=== PATIENT | male | born 1990 | race American Indian/Alaskan Native ===

== ENCOUNTER 2017-11-11 23:12 | Emergency (ER) | payer OTHER ==
[2017-11-11] MEDS ORDERED: Iopamidol 612 MG/ML 100 ML Bottle IVPUSH ONE (23:19)
[2017-11-11] MEDS ORDERED: Sodium Chloride 0.9% 1,000 ML IV ONE (23:21)
[2017-11-11 23:25] VITALS: BP 147/116
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
[2017-11-12 00:05] LABS: ACETAMINOPHEN < 10; ANION GAP 15.7; CHLORIDE,CL 105 mmol/L (101-111); SODIUM,NA 138 mmol/L (135-145)
[2017-11-12] MEDS ORDERED: Ketorolac 30 MG/ML SDV IVPUSH ONE (00:44)
== END 2017-11-12 01:05 | disposition home or self-care (01) ==
LOC: DL.ED 23:12
DX: M54.42 Lumbago with sciatica, left side (principal); F17.210 Nicotine dependence, cigarettes, uncomplicated; F10.129 Alcohol abuse with intoxication, unspecified; Y90.8 Blood alcohol level of 240 mg/100 ml or more
CPT/HCPCS: 36415; 70450; 71260; 72125; 74177; 80053; 80305; 81001; 82140; 82150; 83690; 85025; 99284; G0480; J1885; J7030; Q9967

== ENCOUNTER 2017-12-27 19:35 | Emergency (ER) | payer OTHER ==
[2017-12-27 21:22] VITALS: BP 149/88
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
== END 2017-12-27 22:31 | disposition home or self-care (01) ==
LOC: DL.ED 19:35
DX: S60.221A Contusion of right hand, initial encounter (principal); M54.42 Lumbago with sciatica, left side; F17.210 Nicotine dependence, cigarettes, uncomplicated; X58.XXXA Exposure to other specified factors, initial encounter
CPT/HCPCS: 73130-RT; 99284

== ENCOUNTER 2019-08-24 18:53 | Emergency (ER) | payer MEDICAID, OTHER ==
--- NOTE | 2019-08-24 19:33 | EDM.PDOC ---
ED HPI GENERAL MEDICAL PROBLEM - General Chief Complaint: Lower Extremity Injury/Pain Stated Complaint: PAIN LOWER BACK Time Seen by Provider: 08/24/19 19:32 Source of Information: Reports: Patient, RN History Limitations: Reports: No Limitations - History of Present Illness INITIAL COMMENTS - FREE TEXT/NARRATIVE: Ambulatory with c/o low back pain radiating to right hip. Last ibuprofen at 0900. Has had back issues in past, This feels different as more pain to hip than down leg. No injury. Pain x 5 days. No fever or chills. No incontinence. No numbness or tingling. Pain worse with lifting or when trying to lie on back. 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 [No Known Home Meds] 02/09/14 [History] Past Medical History - Past Health History Medical/Surgical History: Denies Medical/Surgical History HEENT History: Reports: None Musculoskeletal History: Reports: Fracture Other Musculoskeletal History: lower back 2 years ago. Fx. Rt.3rd finger. nerve problem i to lower back in past. - Infectious Disease History Infectious Disease History: Reports: None Social & Family History - Family History Family Medical History: Noncontributory - Tobacco Use Smoking Status *Q: Current Some Day Smoker Years of Tobacco use: 4 Packs/Tins Daily: 0.1 - Caffeine Use Caffeine Use: Reports: Coffee - Recreational Drug Use Recreational Drug Use: Yes Drug Use in Last 12 Months: Yes Recreational Drug Type: Reports: Marijuana/Hashish Recreational Drug Use Frequency: Weekly Review of Systems - Review of Systems Review Of Systems: ROS reveals no pertinent complaints other than HPI. ED EXAM, GENERAL - Physical Exam Exam: See Below Exam Limited By: No Limitations General Appearance: Alert, Mild Distress, Obese Ears: Normal External Exam Nose: Normal Inspection Throat/Mouth: Normal Inspection Head: Atraumatic, Normocephalic Neck: Normal Inspection, Full Range of Motion Respiratory/Chest: No Respiratory Distress, Lungs Clear Cardiovascular: Normal Peripheral Pulses, Regular Rate, Rhythm GI/Abdominal: Soft Back Exam: Full Range of Motion, Paraspinal Tenderness (right lower). No: CVA Tenderness (L), CVA Tenderness (R), Vertebral Tenderness Extremities: Normal Range of Motion, Other (increased pain with leg raise greater than 90 degrees and with inversion of hip/thigh) Neurological: No Motor/Sensory Deficits Skin Exam: Warm, Dry, Intact, Normal Color Course - Vital Signs Last Recorded V/S: Last Vital Signs Temp 98.4 F 08/24/19 21:44 Pulse 78 08/24/19 21:44 Resp 20 08/24/19 21:44 BP 139/88 08/24/19 21:44 Pulse Ox 96 08/24/19 21:44 - Orders/Labs/Meds Meds: Medications Discontinued Medications Generic Name Dose Route Start Last Admin Trade Name Edi PRN Reason Stop Dose Admin Ketorolac Tromethamine 30 mg 08/24/19 21:02 08/24/19 21:10 Toradol IM 08/24/19 21:03 30 mg ONETIME ONE Administration Orphenadrine Citrate 60 mg 08/24/19 21:03 08/24/19 21:12 Norflex IM 08/24/19 21:04 60 mg ONETIME ONE Administration Prednisone 40 mg 08/24/19 21:32 08/24/19 21:43 Prednisone PO 08/24/19 21:33 40 mg ONETIME ONE Administration - Radiology Interpretation Free Text/Narrative:: Final Radiology Report Call: [phone] assistance Online chat: [email or web address] Name: DEVEN BARBOZA Age: 28Years M Date: 08/24/2019 SSN: -- : 1990 Study: CT SPINE LUMBAR WO Requesting Physician: EMERSON JOSÉ Images: [id number] Addl Studies: Provided Clinical History: Contrast: Without Contrast Medium: Contrast Amount: Contrast Method: Page 1 of 2 PROCEDURE INFORMATION: Exam: CT Lumbar Spine Without Contrast Exam date and time: 08/24/2019 8:03 PM Clinical history: 28 years old, male; Low back pain; Patient HX: PT states HX of previous pinched nerve. Primarily right hip pain. No known trauma TECHNIQUE: Imaging protocol: Computed tomography images of the lumbar spine without contrast. Radiation optimization: All CT scans at this facility use at least one of these dose optimization techniques: automated exposure control; mA and/or kV adjustment per patient size (includes targeted exams where dose is matched to clinical indication); or iterative reconstruction. COMPARISON: CR Lumbar Spine 2 or 3V 03/25/2016 11:16 AM FINDINGS: Vertebrae: There are fairly prominent posterior marginal osteophytes projecting from the endplates at L2-3, L3-4, L4-5 and L5-S1. These may cause significant narrowing of the spinal canal. The vertebral body heights are maintained. The facet joints are normal. There is no evidence of acute fracture. Discs/Spinal canal/Neural foramina: See Vertebrae Finding. Soft tissues: The extraspinous soft tissues are normal. IMPRESSION: There may be significant decrease in the AP diameter of the spinal canal at multiple levels as described. Thank you for allowing us to participate in the care of your patient. Dictated and Authenticated by: [facility] Final Radiology Report Call: [phone] assistance Online chat: [email or web address] Name: DEVEN BARBOZA Age: 28Years M Date: 08/24/2019 SSN: -- : [id number] Study: CT PELVIS WO Requesting Physician: EMERSON JOSÉ Images: [id number] Addl Studies: Provided Clinical History: Contrast: Without Contrast Medium: Contrast Amount: Contrast Method: Page 1 of 2 PROCEDURE INFORMATION: Exam: CT Pelvis Without Contrast; Skeletal Exam date and time: 08/24/2019 8:03 PM Clinical history: 28 years old, male; Patient HX: PT states HX of previous pinched nerve. Primarily right hip pain. No known trauma TECHNIQUE: Imaging protocol: Computed tomography images of the pelvis without contrast. Exam focused on the skeletal structures. Radiation optimization: All CT scans at this facility use at least one of these dose optimization techniques: automated exposure control; mA and/or kV adjustment per patient size (includes targeted exams where dose is matched to clinical indication); or iterative reconstruction. COMPARISON: CR Lumbar Spine 2 or 3V 03/25/2016 11:16 AM FINDINGS: Stomach and bowel: No over distention of bowel loops is seen. Appendix: A normal appendix is identified. Bladder: The bladder is normal. Reproductive: The prostate and seminal vesicles are normal. Bones/joints: The alignment of the joints is anatomic and the joint spaces are maintained. There is no evidence of acute fracture. Soft tissues: Normal IMPRESSION: Normal appearing CT of the pelvis. Thank you for allowing us to participate in the care of your patient Departure - Departure Time of Disposition: 21:32 Disposition: Home, Self-Care 01 Condition: Good Clinical Impression: Low back pain with right-sided sciatica Qualifiers: Chronicity: acute Back pain laterality: right Qualified Code(s): M54.41 - Lumbago with sciatica, right side - Discharge Information *PRESCRIPTION DRUG MONITORING PROGRAM REVIEWED*: No *COPY OF PRESCRIPTION DRUG MONITORING REPORT IN PATIENT ISABEL: No Instructions: Sciatica, Back Exercises, [id number] Referrals: PCP,None [Primary Care Provider] - Forms: ED Department Discharge Additional Instructions: prednisone taper alternate tylenol and ibuprofen cold pack to lower back clinic follow up later this week urgent follow up if symptoms worsen and unable to control urine or stool increase fluids flexeril 10mg one every 8 hours as needed for muscle spasm
[2019-08-24] MEDS ORDERED: Ketorolac 30 MG/ML SDV IM ONE (21:02)
[2019-08-24] MEDS ORDERED: predniSONE 20 MG Tab PO ONE (21:32)
[2019-08-24 21:45] VITALS: BP 139/88; PULSE 78
== END 2019-08-24 21:45 | disposition home or self-care (01) ==
LOC: DL.ED 18:53
DX: M54.41 Lumbago with sciatica, right side (principal); F17.210 Nicotine dependence, cigarettes, uncomplicated
CPT/HCPCS: 72131; 72192; 96372; 99283; A9270; J1885; J2360

== ENCOUNTER 2021-06-03 07:33 | Emergency (ER) | payer MEDICAID, OTHER ==
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
[2021-06-03 08:03] VITALS: BP 146/87; PULSE 104
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
== END 2021-06-03 10:31 | disposition home or self-care (01) ==
LOC: DL.ED 07:33
DX: S02.2XXA Fracture of nasal bones, initial encounter for closed fracture (principal); S66.912A Strain of unspecified muscle, fascia and tendon at wrist and hand level, left hand, initial encounter; S70.11XA Contusion of right thigh, initial encounter; S00.83XA Contusion of other part of head, initial encounter; Y04.0XXA Assault by unarmed brawl or fight, initial encounter
CPT/HCPCS: 70450; 70486; 72125; 73110-LT; 99284; 99284-25

== ENCOUNTER 2023-04-26 03:55 | Emergency (ER) | payer MEDICAID ==
[2023-04-26] MEDS ORDERED: Sodium Chloride 0.9% 10 ML Syringe FLUSH PRN (03:56)
[2023-04-26] MEDS ORDERED: Diphtheria,Pertussis(Acell),Tetanus Vaccine 0.5 ML Syringe IM ONE (03:57)
[2023-04-26] MEDS ORDERED: Lidocaine 1% 5 ML VIAL INJECT ONE (04:14)
[2023-04-26] MEDS ORDERED: Bacitracin Oint 1 GM U/D Packet TOP ONE (04:14)
[2023-04-26 04:27] LABS: BASOPHILS PERCENT AUTO 0.2 % (0.0-1.0); EOSINOPHILS PERCENT AUTO 0.7 % (1.0-3.0); HEMATOCRIT 41.4 % (40.0-54.0); HEMOGLOBIN 13.8 g/dL (14.0-18.0); LYMPHOCYTES PERCENT AUTO 16.4 % (20.5-50.1); MEAN CORPUSCULAR HEMOGLOBIN 29.2 pg (27.0-34.0); MEAN CORPUSCULAR HGB CONC 33.3 g/dL (33.0-35.0); MEAN CORPUSCULAR VOLUME 87.7 fL (80-100); NEUTROPHILS PERCENT AUTO 73.7 % (42.2-75.2); PLATELET COUNT,PLT 387 10^3/uL (150-450); RED BLOOD CELL COUNT 4.72 10^6/uL (4.6-6.2); WHITE BLOOD CELL COUNT,WBC 9.6 10^3/uL (5.0-10.0)
[2023-04-26 04:45] LABS: INR 0.9 (0.9-1.2); PROTHROMBIN TIME 8.9 SEC (9.0-12.0); PTT,PARTIAL THROMBOPLSTIN TIME 27.5 SEC (22.0-34.0)
[2023-04-26 04:51] LABS: A/G RATIO 0.9; ALANINE AMINOTRANSFERASE,ALT 76 U/L (16-63); ALBUMIN 3.8 g/dL (3.4-5.0); ALKALINE PHOSPHATASE 115 U/L (46-116); ANION GAP 17.6 mEq/L (7-13); ASPARTATE AMNIOTRANSFERASE,AST 61 U/L (15-37); BILIRUBIN TOTAL 0.5 mg/dL (0.2-1.0); BLOOD UREA NITROGEN,BUN 25 mg/dL (7-18); BUN/CREATININE RATIO 22.7 (No establ ref range); CALCIUM 8.3 mg/dL (8.5-10.1); CARBON DIOXIDE,CO2 22 mmol/L (21-32); CHLORIDE,CL 104 mmol/L (98-107); ETHANOL BLOOD MEDICAL 155 mg/dL (0); GLUCOSE RANDOM 120 mg/dL (70-99); MAGNESIUM 2.5 mg/dL (1.8-2.4); POTASSIUM,K 3.6 mmol/L (3.5-5.1); PROTEIN TOTAL,TP 8.2 g/dL (6.4-8.2); SODIUM,NA 140 mmol/L (136-145)
[2023-04-26 05:11] LABS: ACETAMINOPHEN 0 ug/mL (10-30 (Therapeutic)); ESTIMATED GFR 93 mL/min (>=60)
[2023-04-26 05:41] LABS: APPEARANCE,URINE CLEAR (CLEAR); BILIRUBIN,URINE SMALL (NEGATIVE); COLOR,URINE YELLOW (YELLOW); GLUCOSE,URINE NEGATIVE (NEGATIVE); KETONES,URINE NEGATIVE (NEGATIVE); LEUKOCYTE ESTERASE,URINE SMALL (NEGATIVE); NITRITE,URINE NEGATIVE (NEGATIVE); OCCULT BLOOD,URINE NEGATIVE (NEGATIVE); PROTEIN,URINE 30 (NEGATIVE)
[2023-04-26 05:46] LABS: AMPHETAMINES,URINE POSITIVE (NEGATIVE); BARBITURATES,URINE NEGATIVE (NEGATIVE); BENZODIAZEPINE,URINE NEGATIVE (NEGATIVE); MDMA (ECSTASY), URINE POSITIVE (NEGATIVE); METHADONE,URINE NEGATIVE (NEGATIVE); METHAMPHETAMINES,URINE POSITIVE (NEGATIVE); OPIATES,URINE NEGATIVE (NEGATIVE); OXYCODONE,URINE NEGATIVE (NEGATIVE); PHENCYCLIDINE,URINE NEGATIVE (NEGATIVE); TCA,URINE NEGATIVE (NEGATIVE)
[2023-04-26 06:23] LABS: BACTERIA,URINE FEW /HPF (0-FEW/HPF); EPITHELIAL CELLS,URINE MODERATE /HPF (NOT SEEN); RBC,URINE 0-5 /HPF (0-5); WBC,URINE 30-40 /HPF (0-5/HPF)
== END 2023-04-26 05:52 | disposition home or self-care (01) ==
LOC: DL.ED 03:55
DX: S02.2XXA Fracture of nasal bones, initial encounter for closed fracture (principal); S01.81XA Laceration without foreign body of other part of head, initial encounter; S81.012A Laceration without foreign body, left knee, initial encounter; S01.21XA Laceration without foreign body of nose, initial encounter; Y08.02XA Assault by strike by baseball bat, initial encounter; Y93.01 Activity, walking, marching and hiking; Y92.009 Unspecified place in unspecified non-institutional (private) residence as the place of occurrence of the external cause
CPT/HCPCS: 12002; 12013; 36415; 70450; 70486; 71045; 72125; 73560-LT; 80053; 80143; 80179; 80305-QW; 80307; 81001; 83735; 85025; 85610; 85730; 87086; 90471; 90715; 99284; 99284-25; A9270-GY; J3490